=== PATIENT | male | born 1960 ===

== ENCOUNTER → 2022-06-11 | Outpatient (CLI) | payer OTHER | END | disposition home or self-care (01) | LOC: NUCLEAR 09:20 | PROVIDERS: ATTEND Internal Medicine | DX: I10 Essential (primary) hypertension (principal); E78.2 Mixed hyperlipidemia; F17.200 Nicotine dependence, unspecified, uncomplicated ==

== ENCOUNTER 2022-07-30 07:24 | Outpatient (CLI) | payer OTHER | END 2022-07-30 07:26 | disposition home or self-care (01) | LOC: NUCLEAR 07:24 | PROVIDERS: ATTEND Internal Medicine | DX: I42.2 Other hypertrophic cardiomyopathy (principal); I10 Essential (primary) hypertension ==

== ENCOUNTER 2025-03-22 07:05 | Outpatient (CLI) | payer OTHER | END 2025-03-22 07:06 | disposition home or self-care (01) | LOC: NUCLEAR 07:05 | PROVIDERS: ATTEND Internal Medicine | DX: I42.2 Other hypertrophic cardiomyopathy (principal) | CPT/HCPCS: 78452; 93017; A9500; J0153 ==